=== PATIENT | male | born 1995 | race Caucasian/White ===

== ENCOUNTER 2023-07-06 00:38 | Emergency (ER) | payer OTHER ==
[~2023-07-06] VITALS: Ht 180.3 cm; Wt 85.4 kg
[2023-07-06 00:41] VITALS: BP 131/73; TEMP 97.8; O2SAT 98
[2023-07-06] MEDS ORDERED: LAMO25TA4 PO (00:48)
== END 2023-07-06 02:00 | disposition left against medical advice (07) ==
LOC: M ED 00:38
DX: Z53.21 Procedure and treatment not carried out due to patient leaving prior to being seen by health care provider (principal)